=== PATIENT | male | born 1955 | race African-American/Black ===

== ENCOUNTER 2017-01-10 12:13 | Emergency (ER) | payer MEDICAID, OTHER ==
[~2017-01-10] VITALS: Ht 180.3 cm; Wt 75.0 kg
[2017-01-10 13:02] VITALS: BP 155/94
== END 2017-01-10 15:50 | disposition home or self-care (01) ==
LOC: ER 13:43
DX: S33.9XXA Sprain of unspecified parts of lumbar spine and pelvis, initial encounter (principal); S69.90XA Unspecified injury of unspecified wrist, hand and finger(s), initial encounter; M25.562 Pain in left knee; J45.909 Unspecified asthma, uncomplicated; V49.9XXA Car occupant (driver) (passenger) injured in unspecified traffic accident, initial encounter; Y93.89 Activity, other specified; Y99.8 Other external cause status; Y92.89 Other specified places as the place of occurrence of the external cause
CPT/HCPCS: 72100; 73110; 73562; 99284